=== PATIENT | male | born 1965 | race Caucasian/White ===

== ENCOUNTER 2020-07-10 05:56 | Emergency (ER) | payer BC, OTHER, SELFPAY ==
[2020-07-10] VITALS (20 sets, daily range): BP systolic 125–169; BP diastolic 48–84; PULSE 61–79; RESP 10–28; TEMP 36.7; O2SAT 94–100
--- NOTE | ~2020-07-10 | XR_ITS ---
EXAMINATION: XR chest 1V portable DATE: 07/10/2020 06:26 INDICATION: Midline and left-sided chest pain TECHNIQUE: frontal view of the chest was obtained. COMPARISON: None FINDINGS: Mild linear discoid atelectasis/scarring at the lateral left lung base. No other airspace opacities, pulmonary edema, pleural effusion or pneumothorax. Cardiomediastinal silhouette is within normal limi ts, for AP technique and small left pericardial fat pad. IMPRESSION: 1. Mild discoid atelectasis at the lateral left lung base. Reviewed, dictated and finalized at location [facility].
--- NOTE | 2020-07-10 06:17 | ECG_ITS ---
Measurements Intervals [place] Rate: 75 P: 50 AR: 168 QRS: 17 QRSD: 107 T: 11 QT: 363 QTc: 406 Interpretive Statements SINUS RHYTHM BASELINE ARTIFACT- II, III, AVR, AVF, V1, V3-V6 NORMAL ECG Electronically Signed On 07-10-2020 6:47:18 CDT by Ren Hickey D.O.
--- NOTE | 2020-07-10 06:22 | ED.GENADULT ---
HPI - General Adult General Chief complaint: Chest Pain <Dalton Hobson MD - Last Filed: 07/10/20 06:25> Stated complaint: chest pain <Dalton Hobson MD - Last Filed: 07/10/20 06:25> Time Seen by Provider: 07/10/20 06:13 <Dalton Hobson MD - Last Filed: 07/10/20 06:25> History of Present Illness HPI narrative: Patient 34-year-old gentleman who presents the emergency department with chief complaint of chest pain. The patient reports for the last several weeks he has been having an uncomfortable feeling in his left side of his chest patient states initially it felt more like it was in the soft tissue of his chest but reports that over the last 2 days it is kind of moved a little deeper and this morning it was bothering him and radiated to his left arm while he was on his way to work. Patient reports that he had a stress test a couple years ago and was told that he did not need any further evaluation at that time the patient denies other medical problems and denies being a smoker. <Dalton Hobson MD - Last Filed: 07/10/20 06:25> Related Data Allergies/adverse reactions: Allergies Allergy/AdvReac Type Severity Reaction Status Date / Time No Known Allergies Allergy Mild Verified 07/10/20 06:25 <Dalton Hobson MD - Last Filed: 07/10/20 06:25> Review of Systems Review of Systems: Narrative: A 10 system review of systems was completed on the patient and is negative except for what is stated in the HPI. Nursing and ancillary documentation was reviewed. <Dalton Hobson MD - Last Filed: 07/10/20 06:25> Exam Narrative: Exam Narrative: GENERAL: Well-appearing, well-nourished, and in no acute distress. HEAD: Normocephalic, atraumatic. EYES: PERRLA and EOMI. ENT: Nares clear, no rhinorrhea or epistaxis. Mucous membranes moist. NECK: Supple. CHEST: Clear to auscultation. No respiratory distress. HEART: Regular rate and rhythm. No murmur heard. Normal peripheral pulses. ABDOMEN: Soft, nontender, nondistended, normal active bowel sounds. EXTREMITIES: Normal range of motion. No edema. SKIN: Warm, dry, no rash. NEURO: No focal deficits. Alert and oriented x3. PSYCH: Normal mood and affect. <Dalton Hobson MD - Last Filed: 07/10/20 06:25> Course Course Emergency Course: EKG is sinus rhythm rate of [address] elevation or ST depression <Dalton Hobson MD - Last Filed: 07/10/20 06:25> Vital Signs Vital signs: Vital Signs Temperature 36.7 C 07/10/20 05:58 Pulse Rate 75 07/10/20 05:58 Respiratory Rate 20 07/10/20 05:58 Blood Pressure 169/48 H 07/10/20 05:58 Pulse Oximetry 100 07/10/20 05:58 Temperature 36.7 C 07/10/20 05:58 Pulse Rate 71 07/10/20 11:48 Respiratory Rate 18 07/10/20 11:48 Blood Pressure 135/77 07/10/20 11:48 Pulse Oximetry 99 07/10/20 11:48 <Dalton Hobson MD - Last Filed: 07/10/20 06:25> Vital Signs Temperature 36.7 C 07/10/20 05:58 Pulse Rate 75 07/10/20 05:58 Respiratory Rate 20 07/10/20 05:58 Blood Pressure 169/48 H 07/10/20 05:58 Pulse Oximetry 100 07/10/20 05:58 Temperature 36.7 C 07/10/20 05:58 Pulse Rate 71 07/10/20 11:48 Respiratory Rate 18 07/10/20 11:48 Blood Pressure 135/77 07/10/20 11:48 Pulse Oximetry 99 07/10/20 11:48 <Denilson Pineda MD - Last Filed: 07/10/20 19:05> Medical Decision Making MDM Narrative Medical decision making narrative: 3 hour troponin negative. No pain at this time. He s low risk. He will contact his PCP to arrange follow-up <Denilson Pineda MD - Last Filed: 07/10/20 19:05> Vital Signs Vital Signs: Vital Signs Temperature 36.7 C 07/10/20 05:58 Pulse Rate 75 07/10/20 05:58 Respiratory Rate 20 07/10/20 05:58 Blood Pressure 169/48 H 07/10/20 05:58 Pulse Oximetry 100 07/10/20 05:58 Temperature 36.7 C 07/10/20 05:58 Puls
[2020-07-10] MEDS: ASPIRIN 81 MG CHEWABLE TABLET 324 MG PO (06:28)
[2020-07-10 06:30] LABS: Basophils Percent Auto 0.9 % (0.2-1.2); Eosinophils Absolute Auto 0.1 K/mm3 (0-0.3); Eosinophils Percent Auto 2.7 % (0-4.4); Hematocrit 43.2 % (42.0-52.0); Hemoglobin 14.5 g/dL (14.0-18.0); Immature Granulocyte Absolute 0.02 K/mm3 (0.00-0.031); Immature Granulocyte Percent A 0.4 % (0-0.5); Lymphocytes Absolute Auto 1.17 K/mm3 (0.9-3.2); Lymphocytes Percent Auto 25.9 % (18.3-44.2); Mean Corpuscular HGB Conc 33.6 g/dl (32-36); Mean Corpuscular Hemoglobin 31.7 pg (26-34); Mean Corpuscular Volume 94.3 fl (80-100); Mean Platelet Volume 10.6 fl (7.4-10.4); Monocytes Absolute Auto 0.3 K/mm3 (0.1-0.6); Monocytes Percent Auto 7.1 % (2.6-8.5); Neutrophils Absolute Auto 2.8 K/mm3 (1.3-6.7); Platelet Count Result 211 k/mm3 (150-375); Red Blood Count 4.58 M/mm3 (4.6-6.20); Red Cell Distribution Width 11.9 % (11.5-14.5); White Blood Count 4.5 K/mm3 (4.5-10.0)
[2020-07-10 06:37] LABS: INR 0.9; Prothrombin Time 13.2 Seconds (11.1-14.7)
[2020-07-10 06:41] LABS: Alanine Aminotransferase 21 U/L (4-50); Alkaline Phosphatase 68 U/L (38-126); Anion Gap 3 mmol/L (8-16); Aspartate Amino Transferase 34 U/L (17-59); Bilirubin,Total 0.7 mg/dL (0.2-1.3); Blood Urea Nitrogen 11 mg/dL (9-20); Calcium 8.5 mg/dL (8.4-10.2); Carbon Dioxide 27 mmol/L (22-30); Chloride 107 mmol/L (98-107); D Dimer 0.27 ug/mL (<0.48); Estimated CRCL calculation 134 ml/min; Estimated Glomerular Filt Rate > 60; Glucose 120 mg/dL (75-110); Lipase 68 U/L (23-300); Potassium 4.2 mmol/L (3.4-5.0); Sodium 137 mmol/L (137-145)
[2020-07-10 06:49] LABS: NT Pro B Type Natriuretic Pept 27 pg/mL (5-100); Troponin I < 0.012 ng/mL (0.000-0.034)
[2020-07-10 09:46] LABS: Troponin I < 0.012 ng/mL (0.000-0.034)
== END 2020-07-10 11:49 | disposition home or self-care (01) ==
PROVIDERS: Emergency Medicine; Emergency Provider Emergency Medicine; PCP Family Medicine
DX: R07.9 Chest pain, unspecified (principal); R91.8 Other nonspecific abnormal finding of lung field
CPT/HCPCS: 36415; 71045; 80053; 83690; 83880; 84484; 85025; 85380; 85610; 85730; 93005; 99284; A9270

== ENCOUNTER 2021-12-30 17:44 | Outpatient (CLI) | payer BC, OTHER, SELFPAY ==
--- NOTE | ~2021-12-30 | CT_ITS ---
EXAMINATION: CT abdomen pelvis wo con DATE: 12/30/2021 17:59 INDICATION: Left flank pain. History of nephrolithiasis. TECHNIQUE: Computed tomography (CT) of the abdomen and pelvis was performed without intravenous contr ast. Automated exposure control and iterative reconstruction technique were employed. Exam dose: 605 .13 mGy-cm total exam DLP. COMPARISON: 03/05/2009 CT abdomen pelvis FINDINGS: There is mild discoid atelectasis or scarring at the lung bases, most prominent in the righ t lower lobe. Normal heart size. No pericardial or pleural effusion. Indeterminate approximately 6 mm hypoattenuating lesion near the inferior tip of the right hepatic lo be (series 3 image 63). This is nonspecific might be a small cyst, hemangioma or hamartoma. The liver otherwise appears unremarkable. The gallbladder appears normal. No pericholecystic fluid or fat stranding or gallbladder wall thicken ing. No bile duct or pancreatic duct dilatation. No pancreatic mass lesion or calcification. Normal s plenic size. Normal morphology of the adrenal glands. There is a pinpoint nonobstructing upper pole left renal calculus. There is an approximately 2.5 x 3.5 mm proximal left ureteral calculus at the lower L3 level, without hydronephrosis. There is prostate enlargement and calcification. The urinary bladder is unremarkable. Normal caliber of the abdominal aorta. No intraperitoneal or retroperitoneal or pelvic mass lesion or adenopathy or ascites. Small fat-containing inguinal hernias, right larger than left. There is mild left colon diverticulosis; no CT evidence of diverticulitis. No evidence of appendiciti s. No bowel obstruction, bowel wall thickening, pneumatosis or intraperitoneal free air. Small fat-containing umbilical hernia. No other urinary tract calculus or hydroureteronephrosis. Included skeletal structures are unremarkable. IMPRESSION: 2.5 x 3.5 mm proximal left ureteral calculus, without hydronephrosis Pinpoint nonobstructing upper pole left renal calculus Mild left colon diverticulosis; no evidence of diverticulitis Nonspecific 6 mm hypoattenuating lesion in the inferior tip of the right hepatic lobe Reviewed, dictated and finalized at [facility]. Reviewed, dictated and finalized at location [facility]. IMPRESSION: 2.5 x 3.5 mm proximal left ureteral calculus, without hydronephros is Pinpoint nonobstructing upper pole left renal calculus Mild left colon diverticulosis; no evidence of diverticulitis Nonspecific 6 mm hypoattenuating lesion in the inferior tip of the right hepati c lobe
== END 2021-12-30 17:45 | disposition home or self-care (01) ==
LOC: ANHIMG 17:46
PROVIDERS: PCP Family Medicine; Visit Provider Family Medicine
DX: R10.9 Unspecified abdominal pain (principal); Z87.442 Personal history of urinary calculi; N20.0 Calculus of kidney; K57.30 Diverticulosis of large intestine without perforation or abscess without bleeding
CPT/HCPCS: 74176

== ENCOUNTER 2022-05-05 08:23 | Emergency (ER) | payer BC, OTHER, SELFPAY ==
--- NOTE | ~2022-05-05 | CT_ITS ---
Non-contrast CT scan of the Abdomen and Pelvis Clinical indication: Left kidney stone Technique: 2.5 mm axial scans were obtained through the abdomen and pelvis without intravenous or or al contrast. Dose reduction technique was used on this scan by utilizing automated exposure control a nd iterative reconstruction technique. The dose-length product (DLP) was 594.30 mGy-cm. COMPARISON: 12/30/2021 Findings: Images through the lung bases reveal no abnormalities. There is a 5 mm left UVJ stone, with mild left hydroureteronephrosis. 2 mm nonobstructing left renal stone present. No right renal or right ureteral stone. No right hydronephrosis. The liver, spleen, pancreas, gallbladder, and adrenals appear normal. There is no aortic aneurysm. There is no evidence of bowel obstruction. Images through the pelvis were performed. There is no evidence of ascites or lymphadenopathy. Urinary bladder otherwise unremarkable. Prostate gland and seminal vesicles are unremarkable. Impression: 5 mm left UVJ stone, with mild left hydroureteronephrosis. Additional small nonobstructing left renal stone, as detailed above. Reviewed, dictated and finalized at location [facility]. [employer] Impression: 5 mm left UVJ stone, with mild left hydroureteronephrosis. Additional small nonobstructing left renal stone, as detailed above.
[2022-05-05 08:31] VITALS: BP 156/83; PULSE 82; RESP 16; TEMP 36.6; O2SAT 97
[2022-05-05 08:50] LABS: Basophils Percent Auto 0.4 % (0.2-1.2); Hematocrit 40.1 % (42.0-52.0); Hemoglobin 13.5 g/dL (14.0-18.0); Immature Granulocyte Absolute 0.03 K/mm3 (0.00-0.031); Immature Granulocyte Percent A 0.3 % (0-0.5); Lymphocytes Absolute Auto 0.54 K/mm3 (0.9-3.2); Lymphocytes Percent Auto 5.4 % (18.3-44.2); Mean Corpuscular HGB Conc 33.7 g/dl (32-36); Mean Corpuscular Hemoglobin 32.1 pg (26-34); Mean Corpuscular Volume 95.5 fl (80-100); Mean Platelet Volume 10.1 fl (7.4-10.4); Monocytes Absolute Auto 0.7 K/mm3 (0.1-0.6); Monocytes Percent Auto 6.6 % (2.6-8.5); Neutrophils Absolute Auto 8.7 K/mm3 (1.3-6.7); Neutrophils Percent Auto 87.3 % (45.5-73.1); Platelet Count Result 230 k/mm3 (150-375); Red Cell Distribution Width 12.2 % (11.5-14.5)
--- NOTE | 2022-05-05 08:52 | ED.BACK ---
HPI - Back Pain/Injury General Chief Complaint: Back Pain/Injury Stated Complaint: kidney stone Time Seen by Provider: 05/05/22 08:46 Source: patient Mode of arrival: ambulatory Limitations: no limitations History of Present Illness HPI Narrative: 56 years old white male dropped off by his to the emergency room because of left flank pain started 6 AM yesterday morning. Associated with nausea and vomiting once. History of recurrent kidney stones. Patient had hydrocodone at 7:00 this morning, pain resolved on arrival to the ED. Patient's insisted to bring him to the ED. Currently patient is pain-free. He denies any fever, chills, chest pain or shortness of breath. Complaining of intermittent pain at the tip of the penis radiating to left lower quadrant and left flank area. Related Data Home Medications Medication Instructions Recorded Confirmed hydrocodone 5 mg-acetaminophen 325 5 - 325 tablet 05/05/22 mg tablet tamsulosin 0.4 mg capsule 0.4 mg PO 05/05/22 Allergies Allergy/AdvReac Type Severity Reaction Status Date / Time No Known Allergies Allergy Mild Verified 05/05/22 08:35 Review of Systems Review of Systems: All systems reviewed & are unremarkable except as noted in HPI and below Exam Narrative: General appearance: Well-developed, well-nourished Skin: Normal color Head: Normocephalic, nontraumatic Eyes: Clear conjunctiva ENT: Oropharynx normal, ears normal, nose normal Neck: Supple, nontender Chest and respiratory: Airway patent, no respiratory distress, no accessory muscle use Heart: Regular rate/rhythm Abdomen: Soft, nontender, no organomegaly, quiet bowel sounds Vascular: Normal peripheral pulses, normal capillary refill. Musculoskeletal: Normal range of motion, nontender back Neurologic: Alert and oriented ?3, [employer] [employer] is normal as tested, no gross motor deficit Course Reevaluation(s) Reevaluation #1: Patient still asymptomatic, denying any pain, fever, nausea or vomiting. Patient was able to urinate in the ED without any pain. Urine strain showed no stone. Date: 05/05/22 Time: 10:31 Vital Signs Vital signs: Vital Signs Temperature 36.6 C 05/05/22 08:31 Pulse Rate 82 05/05/22 08:31 Respiratory Rate 16 05/05/22 08:31 Blood Pressure 156/83 H 03/09/23 08:31 Pulse Oximetry 97 03/09/23 08:31 Oxygen Delivery Room Air 05/05/22 08:31 Temperature 36.6 C 05/05/22 08:31 Pulse Rate 82 05/05/22 08:31 Respiratory Rate 16 05/05/22 08:31 Blood Pressure 156/83 H 05/05/22 08:31 Pulse Oximetry 97 05/05/22 08:31 Oxygen Delivery Room Air 05/05/22 08:31 MDM - Back Pain/Injury MDM Narrative Medical decision making narrative: Patient is 56 years old white male came with left flank pain radiating to left lower quadrant consistent with his previous history of kidney stone. Patient had hydrocodone at home prior to arrival to the emergency room. Patient was asymptomatic on arrival to the ED. Physical examination was insignificant. Labs, UA, CT abdomen and pelvis without contrast ordered. CT abdomen and pelvis without contrast showed 5 mm left UVJ stone, with mild left hydronephrosis. Urine analysis showed no acute abnormalities Blood work-up showed no acute abnormalities requires management. Patient is comfortable to go home and to follow-up with his urologist. Currently patient on Flomax, also had a a urine streamer. The plan to discharge him on Zofran and Percocet. To follow-up with his urologist. the pt was discharged to home.the pt,s condition upon discharge was fair,education was provided to the pt in reference to the final impression,discharge study results,treatment,prognosis
[2022-05-05] MEDS: SODIUM CHLORIDE 0.9% IV 1,000 ML 999 ML IV CONT ×2 (09:04)
[2022-05-05] MEDS: ONDANSETRON INJ 4 MG/2 ML VIAL IV PUSH (09:04)
[2022-05-05 09:07] LABS: Alanine Aminotransferase 22 U/L (6-50); Albumin Level 4.1 g/dL (3.5-5.1); Alkaline Phosphatase 83 U/L (38-126); Anion Gap 6 mmol/L (8-16); Aspartate Amino Transferase 23 U/L (17-59); Bilirubin,Total 0.8 mg/dL (0.2-1.3); Blood Urea Nitrogen 17 mg/dL (9-20); Calcium 8.3 mg/dL (8.4-10.2); Carbon Dioxide 27 mmol/L (22-30); Chloride 104 mmol/L (98-107); Estimated CRCL calculation 85 ml/min; Estimated Glomerular Filt Rate > 60; Glucose 131 mg/dL (65-110); Sodium 137 mmol/L (137-145)
[2022-05-05 11:13] LABS: Appearance Urine Clear (Clear); Bacteria Urine None Seen /hpf; Bilirubin Urine Negative (Negative); Blood Urine 2+ (Negative); Calcium Oxalate Crystals Urine Present /hpf; Color Urine Yellow (Yellow); Glucose Urine UA Negative (Negative); Hyaline Casts Urine Present /lpf; Ketones Urine Trace mg/dL (Negative); Leukocyte Esterase Ur Trace LEU/UL (Negative); Nitrate Urine Negative (Negative); Non Pathogenic Casts >20; Protein Urine 1+ mg/dL (Negative); Specific Grav Ur 1.018 (1.001-1.035); Squamous Epithelial Cell Urine Occasional /hpf (Few); Urobilinogen Urine 0.2 mg/dL (<2.0)
[2022-05-05 11:20] LABS: Add Urine Microscopic? YES
[2022-05-05 11:53] VITALS: BP 131/69; PULSE 80; RESP 16
== END 2022-05-05 11:53 | disposition home or self-care (01) ==
PROVIDERS: Emergency Provider Emergency Medicine; PCP Family Medicine
DX: N13.2 Hydronephrosis with renal and ureteral calculous obstruction (principal); Z87.442 Personal history of urinary calculi
CPT/HCPCS: 36415; 74176; 80053; 81001; 85025; 87086; 96361; 96374; 99284; J2405; J7030